=== PATIENT | male | born 1985 | race Caucasian/White ===

== ENCOUNTER 2017-05-16 14:25 | Emergency (ER) | payer OTHER ==
--- NOTE | 2017-05-16 15:00 | CPEKG ---
Heart Rate: 69 RR Interval: 870 P-R Interval: 168 QRSD Interval: 96 QT Interval: 404 QTC Interval: 433 P [place]: 26 QRS [place]: -6 T Wave [place]: 10 EKG Severity - OTHERWISE NORMAL ECG - EKG Impression: SINUS ARRHYTHMIA, RATE [id number] Electronically Signed By: Tosha Grissom 16-May-2017 23:17:11
[2017-05-16 15:08] LABS: % IMMATURE GRANULYOCYTES 0.5 % (0.0-1.1); ABSOLUTE IMMATURE GRANULOCYTES 0.04 10^3/uL (0.00-0.10); ADD DIFF? NO; ADD MORPH? NO; ADD SCAN? NO; ATYPICAL LYMPHOCYTE FLAG 0 (0-99); FRAGMENT RBC FLAG 0 (0-99); HEMATOCRIT 49.4 % (40.0-51.0); HEMOGLOBIN 17.2 g/dL (13.7-17.5); LEFT SHIFT FLG 0 (0-99); LIPEMIA HEMOLYSIS FLAG 90 (0-99); MEAN CELL HEMOGLOBIN 32.5 pg (27.9-34.1); MEAN CELL HEMOGLOBIN CONCENTR. 34.8 g/dL (32.4-36.7); MEAN CELL VOLUME 93.2 fL (81.5-99.8); MEAN PLATELET VOLUME 9.7 fL (8.7-11.7); PLATELET CLUMPS FLAG 0 (0-99); PLATELET COUNT 238 10^3/uL (150-400)
--- NOTE | 2017-05-16 15:16 | EDPHY ---
H & P Stated Complaint: syncopal episode at 1330, feeling dizzy, left CP Time Seen by Provider: 05/16/17 14:57 HPI/ROS: CHIEF COMPLAINT: Chest pain HISTORY OF PRESENT ILLNESS: The patient is a 31 y/o male with a history of hypertension complaining of frequent recurrent chest pain for the last few days that worsened today. He's felt extremely fatigued for the last week. A few days ago he developed stabbing left-sided chest pain. The pain has been intermittent , lasts several seconds and then completely resolves. The pain is aggravated with deep inspiration and coughing. Just prior to arrival, he had similar pain , e thought he was having a panic attack and took 3mg of bromazepam for his symptoms without improvement. He had a syncopal episode and then came to the ED for evaluation. He is currently asymptomatic. He denies recent illness, fever, leg swelling or pain, nausea, vomiting, or other symptoms. No recent recent prolonged travel. No personal or familial history of cardiac disease at a young age. He was seen in our ED 3 years ago for similar symptoms and all of his testing was unremarkable. REVIEW OF SYSTEMS: Constitutional: No fever, no chills Eyes: No visual changes ENT: No sore throat Respiratory: +cough, +shortness of breath Cardiac: +chest pain Gastrointestinal: No nausea, no vomiting, no abdominal pain Genitourinary: No hematuria, no dysuria Musculoskeletal: No leg pain or swelling Skin: No rash Neurological: No headache, no weakness Psychiatric: No depression - Personal History Current Tetanus Diphtheria and Acellular Pertussis (TDAP): Unsure - Medical/Surgical History PMH: PMH includes: 1. Hypertension - hydrochlorothiazide, atenolol 2. Formerly pre-diabetic corrected by losing weight 3. Panic attacks Prior medical records reviewed including ED visit 08/11/13 for chest pain. Hx Asthma: No Hx Chronic Respiratory Disease: No Hx Diabetes: No Hx Cardiac Disease: No Hx Renal Disease: No Hx Cirrhosis: No Hx Alcoholism: No Hx HIV/AIDS: No Hx Splenectomy or Spleen Trauma: No Other PMH: HTN; panic attacks - Social History Smoking Status: Light smoker Additional Social History: Describes himself as a "light" cigarette smoker; gets drunk every weekend; "I smoke a lot of weed;" denies IV drug use; PCP: Dr. Nolasco - Physical Exam Exam: General Appearance: Alert, no distress Eyes: Pupils equal and round, no conjunctival pallor or injection ENT, Mouth: Mucous membranes moist Neck: Normal inspection Respiratory: Lungs are clear to auscultation Chest: Mild tenderness over left anterior chest at costochondral junction Cardiovascular: Regular rate and rhythm Gastrointestinal: Abdomen is soft and non- tender Neurological: A&O, nonfocal, normal gait Skin: Warm and dry, no rash Extremities: Nontender, no pedal edema Psychiatric: Mood and affect normal Constitutional: Initial Vital Signs Temperature (C) 36.6 C 05/16/17 14:26 Heart Rate 65 05/16/17 14:26 Respiratory Rate 18 05/16/17 14:26 Blood Pressure 133/104 H 05/16/17 14: O2 Sat (%) 95 05/16/17 14:26 O2 Delivery Mode Room Air Allergies/Adverse Reactions: No Known Allergies Allergy (Unverified 08/11/13 11:03) Home Medications: Medication Instructions Recorded Atenolol [Tenormin 25 mg (RX)] 25 mg PO DAILY 08/11/13 Medical Decision Making - Diagnostics EKG Interpretation: EKG interpreted by me reveals sinus arrhythmia, no ST or T segment changes. Imaging Results: Chest x-ray independently reviewed by me: NAD Imaging: I viewed and interpreted images myself ED Course/Re-evaluation: This is a 31 y/o male with a history of hypertension who presents with a few- day history of intermittent chest pain. He also reports experiencing a syncopal episode at work today due to pain. His symptoms seem to coincide with the onset of a cough and his pain is reproducible with coughing and to palpation. He has tenderness over the costochondral junction on his left anterior chest and clear lungs on exam. No evidence of respiratory distress. Plan to rule out cardiac and embolic etiology with IV, labs, EKG, and chest x- ray. Musculoskeletal etiology most likely however. The 12 lead EKG was interpreted by myself. Sinus arrhythmia rate 69. See hard copy and/or "tracemaster" electronic copy for interpretation. Chest x-ray is unremarkable. D-dimer and troponin are negative. I feel that I can safely exclude pulmonary embolism and acute coronary syndrome in this patient. Reassessed patient and discussed results. He is sleeping as I enter the room. I recommended ibuprofen every 6-8 hours for his chest wall pain. Standard follow-up and return precautions discussed. He agrees with discharge plan. Differential Diagnosis: Differential diagnosis includes though it is not limited to pneumonia, pneumothorax, pulmonary embolism, aortic dissection, pericarditis, acute coronary syndrome. - Data Points Laboratory Results: Laboratory Results 05/16/17 14:56 05/16/17 14:56 Departure - Departure Disposition: Home, Routine, Self-Care Clinical Impression: Chest pain Qualifiers: Chest pain type: chest pain on breathing Qualified Code(s): R07.1 - Chest pain on breathing; R07.81 - Pleurodynia Condition: Good Instructions: Chest Pain (ED), Costochondritis (ED) Additional Instructions: 1. Take 600mg ibuprofen every 6-8 hours as needed for pain over the next 3-5 days. 2. Follow up with your primary care provider next week. 3. Return to the ED for worsening of condition. Referrals: Blanca Nolasco MD [Primary Care Provider] - As per Instructions Report Scribed for: Tosha Grissom Report Scribed by: Gail Oreilly Date of Report: 05/16/17 Time of Report: 15:01 Physician Review and Approval Statement: 05/16/17 15:01 Portions of this note were transcribed by a medical health researcher. I personally performed a history, physical exam, medical decision making, and confirmed accuracy of information the transcribed note.
[2017-05-16 15:18] LABS: ANION GAP 13 mEq/L (8-16); CALCIUM 9.7 mg/dL (8.5-10.4); CARBON DIOXIDE 27 mEq/l (22-31); CHLORIDE 101 mEq/L (97-110); CREATININE 1.1 mg/dL (0.7-1.3); GLOMERULAR FILTRATION RATE > 60; GLUCOSE 99 mg/dL (70-100); SODIUM 141 mEq/L (134-144)
[2017-05-16 16:55] VITALS: BP 133/90; PULSE 52; RESP 18; TEMP 98.4; O2SAT 95
[2017-05-16] MEDS ORDERED: KETOROLAC 15 MG/1 ML SDV IVP ONE (16:55)
== END 2017-05-16 16:55 | disposition home or self-care (01) ==
DX: R07.1 Chest pain on breathing (principal); R07.81 Pleurodynia; I10 Essential (primary) hypertension; F17.210 Nicotine dependence, cigarettes, uncomplicated

== ENCOUNTER 2017-06-13 08:29 | Observation (INO) | payer OTHER ==
[2017-06-13] MEDS ORDERED: NS 1,000 ML IV ONE (09:35)
--- NOTE | 2017-06-13 09:40 | EDPHY ---
General Narrative: CHIEF COMPLAINT: Chest pain, abdominal pain HISTORY OF PRESENT ILLNESS: Patient complains of abdominal pain and chest pain. He arrives to the emergency department by stat team. He was in the CT department for a scheduled CT scan abdomen pelvis when he developed sudden onset of chest pain. Does but just severe. Associated with some shortness of breath. Nausea but no vomiting. He has had ongoing abdominal pain that started Saturday. He contacted his primary care physician office, and they ordered a CT scan of the abdomen pelvis. No chest pain prior to this. The chest in the has today with similar to that of a month ago. He reports being worked up for that with no definitive diagnosis. He is a smoker with hypertension, any felt that his blood pressure was high, thus he took an additional dose of his atenolol this morning. No radiating pain. No diaphoresis. No other associated complaints or modifying factors. REVIEW OF SYSTEMS: Ten systems reviewed and are negative unless otherwise noted in the HPI PCP: Dr. Nolasco SPECIALISTS: None PAST MEDICAL HISTORY: Hypertension SOCIAL HISTORY: Daily smoker per FAMILY HISTORY: Noncontributory EXAMINATION General Appearance: Alert, no distress Head: normocephalic, atraumatic Eyes: Pupils equal and round, no conjunctival pallor or injection ENT, Mouth: Mucous membranes moist. Airway patent Neck: Normal inspection, supple, non-tender Respiratory: Lungs are clear to auscultation Cardiovascular: Bradycardic rate. Regular rhythm. No murmur. Gastrointestinal: Abdomen is soft and nondistended. There is tenderness on the left side. Guarding in the left upper quadrant. No rigidity. Mild left CVA tenderness. Back: non-tender, no bony abnormalities Neurological: GCS 15. A&O, nonfocal, strength is symmetric in all 4 limbs. Normal mental status. Skin: Warm and dry, no rash. No petechiae. No purpura. Extremities: Nontender, no pedal edema Psychiatric: Mood and affect normal DIFFERENTIAL DIAGNOSES: Including but not limited to renal colic, colitis, diverticulitis, PE, ACS, pneumonia, pleural effusion, pleurisy MDM: 9:30 a.m. Abdominal and chest pain. The abdominal pain has been present since Saturday and I suspect this is due to a stone. The chest pain is likely due to the abdominal pain. He is mildly bradycardic and intermittently back up to normal sinus rhythm. I suspect this is due to taking a 2nd dose of his atenolol. He took a 2nd dose this morning, when normally only taking at at night. I have ordered laboratory studies and chest x-ray. Plan for CT scan of the abdomen pelvis and possibly of the chest depending on the outcome of his laboratory studies. He is in no acute distress. On a vehicle monitor technician. EKG shows sinus bradycardia. Case discussed with secondary supervising physician Dr. Sigala. 11:00 a.m. Laboratory studies are negative with mild hemoconcentration. Troponin negative. UA negative. 11:55 a.m. Notified by radiologist Dr. Bloom. CT scan of the abdomen pelvis is normal. Although there is no evidence of this on the CT scan, I suspect he may have passed a kidney stone prior to the scan. Chest x-ray normal. 12:20 p.m. Patient re-evaluated. Still having chest pain. I think his abdominal pain is likely due to a recently passed stone as the CT scan is completely unremarkable laboratory studies are negative. I did not order narcotics earlier as he was moderately bradycardic. His heart rate has improved and his pain persist. I have ordered IV morphine. Also discussed admitting the patient for observation for serial troponins for ACS rule out as the 1st troponin is not yet sensitive enough to definitively rule him out. He still does have a moderate left-sided chest pain. This is not reproducible. He is a smoker with hypertension. Patient is agreeable with this plan. 12:40 p.m. Case discussed with hospitalist Dr. Fishman. Patient be admitted to Dr. Ray. He is admitted in stable condition. SUPERVISION: Patient was evaluated and examined in conjunction with my secondary supervising physician as documented. We have both examined the patient. - Diagnostics Imaging Results: Imaging Impressions Chest X-Ray 06/13/17 09:35 Impression: Nothing acute identified. Abdomen CT 06/13/17 18:00 Impression: 1. Normal CT abdomen and pelvis with contrast enhancement. 2. No CT evidence of appendicitis, abscess or bowel obstruction. Findings discussed with Mitchell Vazquez PAC at 11:52 hour, 06/13/2017. - History Smoking Status: Light smoker - Objective Vital Signs: Initial Vital Signs Temperature (C) 97.7 F 06/13/17 09:26 Heart Rate 54 L 06/13/17 09:26 Respiratory Rate 20 06/13/17 09:26 Blood Pressure 147/80 H 06/13/17 09:26 O2 Sat (%) 96 06/13/17 09:26 O2 Delivery Mode Room Air Allergies/Adverse Reactions: No Known Allergies Allergy (Unverified 08/11/13 11:03) Home Medications: Medication Instructions Recorded Atenolol [Tenormin 25 mg (RX)] 25 mg PO DAILY 08/11/13 Laboratory Results: Laboratory Results 06/13/17 09:50 06/13/17 10:44 06/13/17 06/13/17 06/13/17 10:44 10:32 10:25 WBC RBC Hgb POC Hgb 17.7 gm/dL H gm/dL (13.7-17.5) Hct POC Hct 52 % H % (40-51) MCV MCH MCHC RDW Plt Count MPV Neut % (Auto) Lymph % (Auto) [place] % (Auto) Eos % (Auto) Baso % (Auto) Nucleat RBC Rel Count Absolute Neuts (auto) Absolute Lymphs (auto) Absolute Monos (auto) Absolute Eos (auto) Absolute Basos (auto) Absolute Nucleated RBC Immature Gran % Immature Gran # D-Dimer POC Sodium 142 mEq/L mEq/L (134-144) Sodium 142 mEq/L mEq/L (134-144) POC Potassium 3.7 mEq/L mEq/L (3.3-5.0) Potassium 4.0 mEq/L mEq/L (3.5-5.2) POC Chloride 102 mEq/L mEq/L (97-110) Chloride 106 mEq/L mEq/L (97-110) Carbon Dioxide 25 mEq/l mEq/l (22-31) Anion Gap 11 mEq/L mEq/L (8-16) POC BUN 16 mg/dL mg/dL (7-23) BUN 15 mg/dL mg/dL (7-23) Creatinine 1.0 mg/dL mg/dL (0.7-1.3) POC Creatinine 1.1 mg/dL mg/dL (0.7-1.3) Estimated GFR > 60 Glucose 90 mg/dL mg/dL (70-100) POC Glucose 90 mg/dL mg/dL (70-100) Calcium 9.2 mg/dL mg/dL (8.5-10.4) Total Bilirubin 0.5 mg/dL mg/dL (0.1-1.4) Conjugated Bilirubin 0.3 mg/dL mg/dL (0.0-0.5) Unconjugated Bilirubin 0.2 mg/dL mg/dL (0.0-1.1) AST 28 IU/L IU/L (17-59) ALT 44 IU/L IU/L (21-72) Alkaline Phosphatase 56 IU/L IU/L (38-126) Troponin I < 0.012 ng/mL ng/mL (0.000-0.034) Total Protein 6.8 g/dL g/dL (6.3-8.2) Albumin 3.9 g/dL g/dL (3.5-5.0) Lipase 171 IU/L IU/L (23-300) Specimen Hemolysis Urine Color YELLOW Urine Appearance CLEAR Urine pH 5.0 (5.0-7.5) Ur Specific [place] 1.016 (1.002-1.030) Urine Protein NEGATIVE (NEGATIVE) Urine Ketones TRACE H (NEGATIVE) Urine Blood NEGATIVE (NEGATIVE) Urine Nitrate NEGATIVE (NEGATIVE) Urine Bilirubin NEGATIVE (NEGATIVE) Urine Urobilinogen NEGATIVE EU EU (0.2-1.0) Ur Leukocyte Esterase NEGATIVE (NEGATIVE) Urine RBC 1-3 /hpf /hpf (0-3) Urine WBC 1-3 /hpf /hpf (0-3) Ur Epithelial Cells NONE SEEN /lpf /lpf (NONE-1+) Urine Mucus TRACE /lpf /lpf (NONE-1+) Urine Glucose NEGATIVE (NEGATIVE) 06/13/17 06/13/17 06/13/17 09:50 09:50 09:50 WBC 7.25 10^3/uL 10^3/uL (3.80-9.50) RBC 5.47 10^6/uL 10^6/uL (4.40-6.38) Hgb 18.1 g/dL H g/dL (13.7-17.5) POC Hgb Hct 50.0 % % (40.0-51.0) POC Hct MCV 91.4 fL fL (81.5-99.8) MCH 33.1 pg pg (27.9-34.1) MCHC 36.2 g/dL g/dL (32.4-36.7) RDW 12.2 % % (11.5-15.2) Plt Count 198 10^3/uL 10^3/uL (150-400) MPV 9.5 fL fL (8.7-11.7) Neut % (Auto) 68.7 % % (39.3-74.2) Lymph % (Auto) 18.1 % % (15.0-45.0) [place] % (Auto) 10.5 % % (4.5-13.0) Eos % (Auto) 1.4 % % (0.6-7.6) Baso % (Auto) 1.0 % % (0.3-1.7) Nucleat RBC Rel Count 0.0 % % (0.0-0.2) Absolute Neuts (auto) 4.99 10^3/uL 10^3/uL (1.70-6.50) Absolute Lymphs (auto) 1.31 10^3/uL 10^3/uL (1.00-3.00) Absolute Monos (auto) 0.76 10^3/uL 10^3/uL (0.30-0.80) Absolute Eos (auto) 0.10 10^3/uL 10^3/uL (0.03-0.40) Absolute Basos (auto) 0.07 10^3/uL 10^3/uL (0.02-0.10) Absolute Nucleated RBC 0.00 10^3/uL 10^3/uL (0-0.01) Immature Gran % 0.3 % % (0.0-1.1) Immature Gran # 0.02 10^3/uL 10^3/uL (0.00-0.10) D-Dimer 0.29 ug/mLFEU ug/mLFEU (0.00-0.50) POC Sodium Sodium TNP POC Potassium Potassium TNP POC Chloride Chloride TNP Carbon Dioxide TNP Anion Gap TNP POC BUN BUN TNP Creatinine TNP POC Creatinine Estimated GFR TNP Glucose TNP POC Glucose Calcium TNP Total Bilirubin TNP Conjugated Bilirubin TNP Unconjugated Bilirubin TNP AST TNP ALT TNP Alkaline Phosphatase TNP Troponin I REJ Total Protein TNP Albumin TNP Lipase TNP Specimen Hemolysis COMBER OPERATOR Urine Color Urine Appearance Urine pH Ur Specific [place] Urine Protein Urine Ketones Urine Blood Urine Nitrate Urine Bilirubin Urine Urobilinogen Ur Leukocyte Esterase Urine RBC Urine WBC Ur Epithelial Cells Urine Mucus Urine Glucose Medications Given: Discontinued Medications Sodium Chloride (Ns) 1,000 mls @ 0 mls/hr IV EDNOW ONE; Wide Open PRN Reason: Protocol Stop: 06/13/17 09:36 Last Admin: 06/13/17 09:50 Dose: 1,000 mls Point of Care Test Results: 06/13/17 10:32 POC Sodium 142 POC Potassium 3.7 POC Chloride 102 POC BUN 16 POC Creatinine 1.1 POC Glucose 90 Departure - Departure Disposition: [facility] Inpatient Acute Clinical Impression: Acute chest pain Abdominal pain Qualifiers: Abdominal location: left upper quadrant Qualified Code(s): R10.12 - Left upper quadrant pain Condition: Good Referrals: NONE *PRIMARY CARE P,. [Primary Care Provider] - As per Instructions
--- NOTE | 2017-06-13 09:54 | CPEKG ---
Heart Rate: 48 RR Interval: 1250 P-R Interval: 160 QRSD Interval: 96 QT Interval: 400 QTC Interval: 358 P [place]: 41 QRS [place]: -6 T Wave [place]: 24 EKG Severity - OTHERWISE NORMAL ECG - EKG Impression: SINUS BRADYCARDIA Electronically Signed By: Lincoln Nugent 14-Jun-2017 20:50:37
[2017-06-13 10:00] LABS: % IMMATURE GRANULYOCYTES 0.3 % (0.0-1.1); ABSOLUTE IMMATURE GRANULOCYTES 0.02 10^3/uL (0.00-0.10); ADD DIFF? NO; ADD MORPH? NO; ADD SCAN? NO; ATYPICAL LYMPHOCYTE FLAG 0 (0-99); FRAGMENT RBC FLAG 0 (0-99); HEMOGLOBIN 18.1 g/dL (13.7-17.5); LEFT SHIFT FLG 0 (0-99); LIPEMIA HEMOLYSIS FLAG 90 (0-99); MEAN CELL HEMOGLOBIN 33.1 pg (27.9-34.1); MEAN CELL HEMOGLOBIN CONCENTR. 36.2 g/dL (32.4-36.7); MEAN CELL VOLUME 91.4 fL (81.5-99.8); MEAN PLATELET VOLUME 9.5 fL (8.7-11.7); PLATELET CLUMPS FLAG 0 (0-99); PLATELET COUNT 198 10^3/uL (150-400); RED BLOOD CELL COUNT 5.47 10^6/uL (4.40-6.38); RED CELL DISTRIBUTION WIDTH 12.2 % (11.5-15.2)
[2017-06-13] MEDS ORDERED: IOPAMIDOL (ISOVUE-300) 100 ML BTL ONE (10:30)
[2017-06-13 10:40] LABS: COLOR YELLOW; LEUKOCYTE ESTERASE,URINE NEGATIVE (NEGATIVE); MUCUS TRACE /lpf (NONE-1+); NITRITE,URINE NEGATIVE (NEGATIVE)
[2017-06-13 11:06] LABS: ALANINE AMINOTRANSFERASE 44 IU/L (21-72); ALBUMIN 3.9 g/dL (3.5-5.0); ALKALINE PHOSPHATASE 56 IU/L (38-126); ANION GAP 11 mEq/L (8-16); ASPARTATE AMINOTRANSFERASE 28 IU/L (17-59); BILIRUBIN,TOTAL 0.5 mg/dL (0.1-1.4); BILIRUBIN-CONJUGATED 0.3 mg/dL (0.0-0.5); BILIRUBIN-UNCONJUGATED 0.2 mg/dL (0.0-1.1); CALCIUM 9.2 mg/dL (8.5-10.4); CARBON DIOXIDE 25 mEq/l (22-31); CHLORIDE 106 mEq/L (97-110); GLOMERULAR FILTRATION RATE > 60; GLUCOSE 90 mg/dL (70-100); SODIUM 142 mEq/L (134-144); TOTAL PROTEIN 6.8 g/dL (6.3-8.2)
[2017-06-13 11:17] LABS: TROPONIN I < 0.012 ng/mL (0.000-0.034)
[2017-06-13] MEDS ORDERED: ONDANSETRON DISINTEGRATING 4 MG TAB PO PRN (12:44)
[2017-06-13] MEDS ORDERED: ONDANSETRON 4 MG/2 ML VIAL IVP PRN (12:44)
[2017-06-13] MEDS ORDERED: ACETAMINOPHEN 325 MG TAB PO PRN (12:44)
--- NOTE | 2017-06-13 13:33 | CPEKG ---
Heart Rate: 57 RR Interval: 1053 P-R Interval: 164 QRSD Interval: 96 QT Interval: 396 QTC Interval: 386 P [place]: 34 QRS [place]: -4 T Wave [place]: 21 EKG Severity - BORDERLINE ECG - EKG Impression: SINUS RHYTHM EKG Impression: CONSIDER LEFT VENTRICULAR HYPERTROPHY Electronically Signed By: Lincoln Nugent 14-Jun-2017 20:50:31
[2017-06-13] MEDS ORDERED: HYOSCYAMINE SULFATE 0.125 MG TAB PO ONE (14:12)
[2017-06-13] MEDS ORDERED: LIDOCAINE 2% VISCOUS 15 ML UDCUP PO ONE (14:12)
[2017-06-13] MEDS ORDERED: MAG HYDROX/AL HYDROX/SIMETH 30 ML UDCUP PO ONE (14:12)
[2017-06-13] MEDS ORDERED: oxyCODONE IR 5 MG TAB PO PRN (14:13)
--- NOTE | 2017-06-13 14:44 | GHP ---
[f rep st] HISTORY AND PHYSICAL DATE OF ADMISSION: 06/13/2017 CHIEF COMPLAINT: Abdominal and chest pain. HISTORY OF PRESENT ILLNESS: This is a 31-year-old male with a past medical history of hypertension, tobacco use, and alcohol use who is presenting with abdominal pain and subsequent chest pain. The abdominal pain awoke him Saturday morning in his left lower quadrant. It felt like a sand bag was over that area. He noted it to be a stabbing sensation if he coughed or sneezed. It did radiate to the back. He did not have any associated nausea, vomiting, or fever. If the episode and the pain were too high, he did feel sweaty and hot. The pain has been constant, 5/10, but with sneezing or coughing it is 9/10. He took 800 mg of Advil 2-3 times a day for the last couple of days with no relief. He saw his primary care physician who told him he had hematuria and was scheduled for abdominal CT. While waiting for the CT scan he was noted to be hypertensive and said that the pain traveled to both sides of his chest. There was no associated numbness, tingling, radiation, nausea, or vomiting. He does not exercise. He works at a desk job. He says that over the last couple of days he has felt short of breath with stairs. He notes the pain in his chest and abdomen to be worse when he rotates or moves around. He noted that his blood pressure was high this morning, so he took 2 doses of atenolol. REVIEW OF SYSTEMS: I completed a 10-point review of systems, which was negative except as noted in the HPI. PAST MEDICAL HISTORY: Hypertension, alcohol use, and tobacco abuse. PAST SURGICAL HISTORY: None. FAMILY HISTORY: Grandpa with lung cancer. No [place] or CVA. MEDICATIONS: Atenolol. ALLERGIES: No known drug allergies. SOCIAL HISTORY: He works at a [employer]. He has smoked a pack of cigarettes a week for 15 years. He drinks a few times a week, at least 5-6 drinks, and smokes marijuana. He denies other illicits. PHYSICAL EXAMINATION: VITAL SIGNS: Blood pressure was 147/80, but is now 120/ 87, temperature is 36.5, heart rate is 54-60, respirations 30, and O2 sat is 96 % on room air. GENERAL: This is a male sitting in bed in no acute distress. HEENT: PERRLA. EOMI. Oropharynx is clear. CV: Hiren and regular with no murmurs, gallops, or rubs. LUNGS: Clear with no crackles or wheezing. ABDOMEN: Obese, soft, and nondistended with mild left lower quadrant tenderness to palpation. No rebound. : No Jorge. MUSCULOSKELETAL: 5/5 upper and lower extremity strength. NEUROLOGIC: Cranial nerves 2 through 12 are intact. PSYCHIATRIC: Alert and oriented x3. LABORATORY DATA: WBC is 7, hemoglobin 18, hematocrit 50, and platelets 198. D- dimer is 0.29. Sodium is 142, potassium 4, chloride 106, carbon dioxide 25, BUN 15, creatinine 1, and glucose is 90. LFTs are normal. Troponin is less than 0.012. Lipase is 171. UA reveals trace ketones. IMAGING: EKG was personally reviewed by me and reveals sinus bradycardia. Chest x-ray was personally reviewed by me and reveals no infiltrate or edema. Abdominal CT was normal. CT of the abdomen and pelvis revealed no evidence of obstruction or appendicitis. ASSESSMENT AND PLAN: 1. Acute chest pain/abdominal pain. Differential includes acute coronary syndrome versus pulmonary embolism versus gastroesophageal reflux disease versus musculoskeletal. CT of the abdomen and pelvis was negative for appendicitis or other infection. There was no evidence of pneumonia on x-ray. D-dimer was negative. Initial troponin and EKG were negative for ischemia. We will monitor him on telemetry and repeat both. He does have personal risk factors, including tobacco and hypertension. He has no family history. Atypical features, in that the pain is actually worse with movement, are less suggestive of cardiac. We could consider an echocardiogram. He can do an outpatient stress test if troponin is negative. We will trial a gastrointestinal cocktail and check a urine toxicology. 2. Tobacco abuse. The patient was counseled on cessation. 3. Alcohol use. He is drinking 5-6 drinks several times a week and was again advised on cessation. 4. Hypertension, likely driven by pain. Continue home medications. The patient doubled up on his medication and we advised against doing that, given bradycardia. 5. Bradycardia. He took 2 doses of atenolol this morning. We will monitor on telemetry. 6. Diet: Regular. 7. DVT prophylaxis: Low risk. DISPOSITION: The patient warrants observation and admission given acute bradycardia, acute abdominal pain, and acute chest pain warranting serial troponin and possible echocardiogram. /[id number]/MODL MTDD
[2017-06-13] MEDS: KETOROLAC 15 MG/1 ML SDV IVP SCH ×2 (18:22→23:37)
[2017-06-14] MEDS: KETOROLAC 15 MG/1 ML SDV IVP SCH (05:37)
[2017-06-14 07:11] VITALS: PULSE 63; RESP 14; TEMP 98.5; O2SAT 94
[2017-06-14 08:00] VITALS: BP 138/91
[2017-06-14] MEDS ORDERED: HYDROCHLOROTHIAZIDE 12.5 MG CAP PO SCH (09:00)
--- NOTE | 2017-06-14 10:54 | GDS ---
[f rep st] DISCHARGE SUMMARY CHIEF COMPLAINT: 1. Abdominal pain. 2. Chest pain. 3. Hypertension. 4. Tobacco abuse. 5. Marijuana use. 6. Alcohol use. HISTORY OF PRESENT ILLNESS: A 31-year-old male with history of hypertension, tobacco abuse, who was seen by his primary care physician for abdominal pain and sent to the emergency room for CT scan. Pr ior to CT scan, his blood pressure was noted to be elevated and he stated that the left lower quadran t pain began to radiate up to his chest. Initially, he developed left lower quadrant abdominal pain on Saturday that awoke him from sleep. He states that it became very sharp if he coughed or sneezed. It has been constant since that time. No fevers, chills, or sweats. No nausea, vomiting, or diarrhe a. Prior to a CT scan yesterday, he said he developed chest pain without radiation, diaphoresis, or shortness of breath. The pain is worse when he moves around. He has been taking Advil for the last couple days without relief. In the morning, he noted his blood pressure to be elevated so he took 2 doses of atenolol 100 mg twice daily. Denies recent travel. HOSPITAL COURSE BY PROBLEM: 1. Acute abdominal pain/chest pain: Unclear etiology. May be musculoskeletal. CT abdomen, pelvis and LFTs were negative. D-dimer, and chest x-ray were negative. Troponin and EKGs were negative for ischemia. The patient's pain is resolved today. Would recommend follow up with his primary care ph ysician in the next few days for outpatient stress test.. 2. Tobacco use. Patient counseled on cessation. 3. Polysubstance abuse, marijuana and alcohol: Patient uses excessively. I recommend that he decre ase use or stop. 4. Bradycardia: Secondary to doubling his dose of atenolol. His heart rates were 60s here this mor cristina. Recommend that he hold this medication for the next couple of days. He may resume on Saturday. DISPOSITION: Patient is stable for discharge today. MEDICATIONS: Hold atenolol until Saturday. FOLLOW UP: Primary care physician for outpatient stress test. PHYSICAL EXAM: VITAL SIGNS: Today, temperature 36.9, blood pressure 107/84, heart rate 58-63, respi ration 14, 94% on room air. GENERAL: Well-appearing, overweight, no acute distress. Walking around, appears brighter. HEENT PERRLA. EOMI. Oropharynx clear. CARDIOVASCULAR: Bradycardic but regular. No murmurs, gallops, rubs. No lower extremity edema. LUNGS: Clear. No crackles or wheezing. ABDO MEN: Soft, nontender, nondistended. Positive bowel sounds. : No Jorge. MUSCULOSKELETAL: 5/5 upp er and lower extremity strength. NEUROLOGIC: Cranial nerved 2 through 12 intact. PSYCHIATRIC: Alert and oriented x3. /[id number]/MODL
--- NOTE | 2017-06-15 13:48 | ASDISCHSUM ---
Discharge Information Plan Status: Medically Cleared to Leave: Discharge Date:06/14/2017 09:47 AM CM D/C Disposition: ADT D/C Disposition:Home, Routine, Self-Care Projected Discharge Date:06/14/2017 09:47 AM Transportation at D/C: Discharge Delay Reason: Follow-Up Date:06/14/2017 09:47 AM Discharge Slot: Final Diagnosis: Placement Information Patient Contact Information Contact Name:KIRBY Relationship:Other Address: Work Phone: City: [facility] Phone: State/[employer] Code: Email: Financial Information Financial Class:HMO and PPO Plans Primary Plan Desc:[facility] P[facility] POS Primary Plan Number:[id number] Secondary Plan Desc: Secondary Plan Number: Assessment Information LACE LACE Acuity / Level of Care Answers: Was the patient admitted to hospital via the emergency department? Yes: Emergency dept visits in Answers: 2 last 6 months Score: 5 Date Signed: 06/13/2017 12:49 PM Electronically Signed By:Evelina Sweet RN Intervention Information
== END 2017-06-14 09:47 | disposition home or self-care (01) ==
LOC: FIMAGING 08:29 → F3E 14:14 → EDSTATUS 18:00
PROVIDERS: ADMIT Internal Medicine; ATTEND Internal Medicine
DX: R07.9 Chest pain, unspecified (principal); R10.12 Left upper quadrant pain; I10 Essential (primary) hypertension; F17.210 Nicotine dependence, cigarettes, uncomplicated; F12.90 Cannabis use, unspecified, uncomplicated; Z72.89 Other problems related to lifestyle; R00.1 Bradycardia, unspecified; Z80.1 Family history of malignant neoplasm of trachea, bronchus and lung
CPT/HCPCS: 71010; 74177; 93005; G0378; 80305; 82947-QW; J1885; Q9967

== ENCOUNTER 2017-11-02 14:28 | Emergency (ER) | payer OTHER ==
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
[2017-11-02 16:22] VITALS: BP 108/76
== END 2017-11-02 16:23 | disposition home or self-care (01) ==
DX: S52.124A Nondisplaced fracture of head of right radius, initial encounter for closed fracture (principal); I10 Essential (primary) hypertension; F17.200 Nicotine dependence, unspecified, uncomplicated; V18.2XXA Unspecified pedal cyclist injured in noncollision transport accident in nontraffic accident, initial encounter

== ENCOUNTER 2018-01-30 11:58 | Emergency (ER) | payer OTHER ==
--- NOTE | 2018-01-30 12:14 | CPEKG ---
Heart Rate: 61 RR Interval: 984 P-R Interval: 164 QRSD Interval: 96 QT Interval: 400 QTC Interval: 403 P [place]: 46 QRS [place]: 3 T Wave And[place]: 18 EKG Severity - NORMAL ECG - EKG Impression: SINUS RHYTHM Electronically Signed By: Kenyetta Rivera 30-Jan-2018 15:04:10
[2018-01-30 13:23] LABS: PLATELET COUNT 229 10^3/uL (150-400)
[2018-01-30] MEDS ORDERED: NS 1,000 ML IV ONE (13:33)
--- NOTE | 2018-01-30 13:38 | EDPHY ---
HPI/HX/ROS/PE/MDM Narrative: CHIEF COMPLAINT: Dizziness, vomiting, near syncope HISTORY OF PRESENT ILLNESS: The patient is a 32 y/o male with a history of hypertension and sleep apnea complaining of an episode of dizziness, vomiting, and near syncope. For the past few days, he has had pain in his left sacroiliac joint for which he has been taking 400 mg of ibuprofen 3 times daily and 325mg aspirin. Last night, he drank slightly more than normal for a weeknight and consumed some marijuana. This morning, he felt normal. While sitting at his desk at work, he suddenly felt as though all of the blood rushed out of his head. He felt like he couldn't speak or focus and left his office. In the parking lot, he felt his vision go black and he was near syncopal, catching himself as he fell. He then vomited. He reports an associated feeling as though his heart was beating too slow. He reports he feels fine now. He started sleeping with CPAP at night in August and feels his hypertension medications may need to be adjusted, though he hasn't had any changes in dosing this year. He is a current, everyday smoker. He reports a family history of heart attack in 40s. He denies any other related condition. He denies using any illicit drugs. No fever, chills, chest pain, shortness of breath, palpitations, diarrhea, urinary complaints, headache. REVIEW OF SYSTEMS: Aside from elements discussed in the HPI, a comprehensive 10-point review of systems was reviewed and is negative. PAST MEDICAL HISTORY: Hypertension, sleep apnea SOCIAL HISTORY: Works at a [employer] firm, marijuana user, everyday smoker VITAL SIGNS: Reviewed by me. Slightly bradycardic at 51. GENERAL: Well-developed, well-nourished, resting comfortably in no respiratory distress. Slightly tremulous. HEENT: Atraumatic. Eyes: No icterus, no injection. Mouth: moist mucous membranes. No erythema or lesions. Neck: supple with no adenopathy. LUNGS: Clear to auscultation bilaterally, no wheezes, rhonchi or rales. CARDIAC: Bradycardic regular rate and rhythm, no rubs, murmurs or gallops. ABDOMEN: Soft, nontender, nondistended, bowel sounds normal. BACK: No CVA tenderness. No midline lumbar spine tenderness. Patient indicates the area pain near the right SI joint/sacral notch area deep in the buttock. He has a negative straight leg raise test. No erythema or overlying skin changes. EXTREMITIES: No trauma. No edema. NEURO: Alert and oriented, grossly nonfocal. SKIN: Warm and dry, no rash. PSYCHIATRIC: Normal mentation, no agitation. ED Course: 12-LEAD EKG: Please see the full report in [facility]. My interpretation: Normal sinus rhythm The patient presents with an episodes of dizziness, lightheadedness, near syncope, and vomiting. His exam is overall normal, though he is slightly tremulous and slightly bradycardic. He had been drinking alcohol and using marijuana last night, though not outside of his normal limits. He may need an adjustment in his hypertension medication but he does not check his blood pressure regularly. Likely, symptoms are vasovagal. Plan for EKG, CBC, basic metabolic panel, troponin, ethanol level, and 1 L NS fluid. Emergency department evaluation included an EKG demonstrating normal sinus rhythm. Laboratory evaluation which was negative. Troponin which was negative. Alcohol level of less than 10. Patient's blood pressure while in the emergency department was slightly elevated , 140s over 110's. Patient I discussed his cardiac risk factors for coronary artery disease including male sex, hypertension, smoking, and probable family history. Patient is interested in obtaining a stress test. Today's symptoms to me appear to be vasovagal and not cardiac syncope. At no point did he experience chest pain or shortness of breath. He understands importance of following up with his primary care physician in fact already has an appointment for tomorrow. I encouraged him to monitor his blood pressure, avoid excessive alcohol intake, drink plenty of fluids and get plenty of rest, and follow up as scheduled.. 3:00 PM - The patient workup has been largely negative. I feel he is safe for discharge with PCP followup for continued symptoms. He agrees to this course of action. MDM: Differential diagnosis of the patient's presenting complaint was considered including but not limited to vasovagal syncope, arrhythmia, dehydration, and blood loss. - Data Points Laboratory Results: Laboratory Results 01/30/18 12:20 01/30/18 12:20 Medications Given: Discontinued Medications Sodium Chloride (Ns) 1,000 mls @ 0 mls/hr IV ONCE ONE; Wide Open PRN Reason: Protocol Stop: 01/30/18 13:34 Last Admin: 01/30/18 13:42 Dose: 1,000 mls Point of Care Test Results: Chemistry 01/30/18 12:16 POC Troponin I 0.00 ng/mL ng/mL (0.00-0.08) General Time Seen by Provider: 01/30/18 13:17 Initial Vital Signs: Initial Vital Signs Temperature (C) 36.7 C 01/30/18 12:05 Heart Rate 55 L 01/30/18 12:05 Respiratory Rate 18 01/30/18 12:05 Blood Pressure 148/89 H 01/30/18 12:05 O2 Sat (%) 94 01/30/18 12:05 O2 Delivery Mode Room Air Allergies/Adverse Reactions: No Known Allergies Allergy (Unverified 11/02/17 14:29) Home Medications: Medication Instructions Recorded Atenolol [Tenormin 100 mg (*)] 100 mg PO DAILY 06/13/17 Hydrochlorothiazide [HCTZ (*)] 12.5 mg PO DAILY 06/13/17 Fish Oil 1000 mg (*) 01/30/18 Departure - Departure Disposition: Home, Routine, Self-Care Clinical Impression: Near syncope Condition: Good Instructions: Near Syncope (ED) Additional Instructions: Please drink plenty of fluid. Please avoid excessive alcohol intake. Please obtain a home blood pressure cuff and monitor your blood pressure several times a week. Please follow up with Dr. Nolasco is office for further evaluation of your medications as well as further testing is indicated. Return to the emergency department or seek care urgently if you develop recurrent fainting or near fainting episodes, developed chest pain, shortness of breath, dizziness, lightheadedness, or other concerns. Referrals: Blanca Nolasco MD [Primary Care Provider] - As per Instructions Report Scribed for: Kenyetta Rivera Report Scribed by: Latisha Humphrey Date of Report: 01/30/18 Time of Report: 13:39 Physician Review and Approval Statement: Portions of this note were transcribed by a medical affairs director. I personally performed a history, physical exam, medical decision making, and confirmed accuracy of information the transcribed note.
[2018-01-30 14:56] VITALS: BP 143/99
== END 2018-01-30 14:57 | disposition home or self-care (01) ==
LOC: EDUNIT#
DX: R55 Syncope and collapse (principal); E86.9 Volume depletion, unspecified; I10 Essential (primary) hypertension
CPT/HCPCS: 84484-PO; G0480